=== PATIENT | male | born 1935 | race Caucasian/White ===

== ENCOUNTER 2018-05-15 08:36 | Day surgery (SDC) | payer OTHER ==
[2018-05-10 14:12] LABS: Urine Appearance CLEAR; Urine Bilirubin NEGATIVE (NEG); Urine Blood 3+ (NEG); Urine Color YELLOW; Urine Glucose NEGATIVE (NEG); Urine Protein NEGATIVE (NEG); Urine Specific Gravity 1.015 (1.005-1.030); Urine pH 5.5 (5.0-7.0)
--- NOTE | 2018-05-10 14:12 | RAD REPORT ---
EXAM DESCRIPTION: RAD - Chest Pa And Lat (2 Views) - 05/10/2018 2:05 pm CLINICAL HISTORY: preop Hypertension COMPARISON: Abdomen 1 View (KUB) dated 05/10/2018; Abdomen 1 View (KUB) dated 05/03/2018; Abdomen 1 Vie w (KUB) dated 08/31/2017; Abdomen 1 View (KUB) dated 08/29/2016; Thorax W/ Con dated 05/08/2018 FINDINGS: The lungs are mildly emphysematous but clear. The heart is mildly enlarged in size with ch anges of a prior sternotomy noted. No displaced fractures. IMPRESSION: Mild COPD.
[2018-05-10 14:23] LABS: Absolute Lymphocytes (CBC) 1.7 K/uL (0.7-4.9); Absolute Monocytes 0.4 K/uL (0.1-1.3); Basophils % 0.7 % (0-1.3); Eosinophils % 0.6 % (0-4.4); Hematocrit 39.2 % (39.6-49.0); Lymphocytes % 27.1 % (15.3-44.8); MCH 30.2 pg (27.0-35.0); Monocytes % 6.5 % (3.3-12.3); RBC Red Blood Cell Count 4.31 M/uL (4.33-5.43)
[2018-05-10 14:24] LABS: Potassium 4.4 mEq/L (3.6-5.0)
[2018-05-10 14:42] LABS: Protime INR 1.16
[2018-05-10 14:43] LABS: Urine Microscopic Reflex ORDER UMIC
[2018-05-10 14:44] LABS: Urine Bacteria <20 /HPF (NONE SEEN); Urine Culture Reflex Order NOT NEEDED; Urine Mucus 1+ /HPF (NONE SEEN); Urine RBC >50 /HPF (NONE SEEN)
--- NOTE | 2018-05-11 06:19 | EKG ---
Test Date: 2018-05-10 Test Time: 13:57:55 Insurance Account Specialist: MAUDE MEASUREMENT RESULTS: Intervals: Rate: 95 IN: 128 QRSD: 90 QT: 350 QTc: 464 [place]: P: IN: 128 QRS: 58 T: 217 INTERPRETIVE STATEMENTS: Atrial fibrillation with frequent premature ventricular or aberrantly conducted complexes Nonspecific T wave abnormality Abnormal ECG Compared to ECG 10/02/2015 09:53:50 Ventricular premature complex(es) now present T-wave abnormality now present Sinus bradycardia no longer present Electronically Signed On 05-11-18 06:18:50 CDT by Bo Rubin
--- OUTSIDE RECORDS SUMMARY | 2018-05-15 08:38 | XMS REPORT | Clinical Summary ---
:1935 Author Organization [facility] Address [address] [place] [address] Care Team Providers Name Role Phone Asked, No Pcp Primary Care Provider Unavailable Allergies Active Allergy Reactions Severity Noted Date Comments No Known Drug Allergies 09/19/2016 Current Medications Prescription Sig. Disp. Refills Start Date End Date Status aspirin 81 mg Chew 1 tablet Active chewable tablet every day by oral route. omeprazole omeprazole 40 mg Active (PriLOSEC) 40 MG capsule,delayed capsule release furosemide (LASIX) Take 1 tablet (20 30 tablet 04/17/2018 04/17/20 Active 20 mg mg total) by mouth 19 tabletIndications: daily. Coronary artery disease involving [place] coronary artery of [place] heart without angina pectoris, Systolic congestive heart failure, unspecified congestive heart failure chronicity metoprolol Take 1 tablet (50 30 tablet 04/17/2018 04/17/20 Active succinate XL mg total) by mouth 19 (TOPROL-XL) 50 mg daily. 24 hr tabletIndications: Coronary artery disease involving [place] coronary artery of [place] heart without angina pectoris, Systolic congestive heart failure, unspecified congestive heart failure chronicity clopidogrel Take 1 tablet (75 30 tablet 04/17/2018 04/17/20 Active (PLAVIX) 75 mg mg total) by mouth 19 tabletIndications: daily. Coronary artery disease involving [place] coronary artery of [place] heart without angina pectoris, Systolic congestive heart failure, unspecified congestive heart failure chronicity orphenadrine orphenadrine 11/15/20 Discontinued (NORFLEX) 100 mg citrate ER 100 mg 17 12 hr tablet tablet,extended release HYDROcodone-acetam hydrocodone 5 11/15/20 Discontinued inophen (NORCO) mg-acetaminophen 17 5-325 mg per 325 mg tablet tablet bacitracin bacitracin 500 11/15/20 Discontinued ophthalmic unit/gram eye 17 ointment ointment cephalexin cephalexin 500 mg 11/15/20 Discontinued (KEFLEX) 500 MG capsule 17 capsule ciprofloxacin ciprofloxacin 500 11/15/20 Discontinued (CIPRO) 500 MG mg tablet 17 tablet traMADol (ULTRAM) tramadol 50 mg 11/15/20 Discontinued 50 mg tablet tablet 17 FLUZONE HIGH-DOSE INJECT 1 DOSE INTO 0 08/02/2016 11/15/20 Discontinued 2015-, PF, THE MUSCLE 17 vaccine VIT Take by mouth. 11/15/20 Discontinued C/E/ZN/COPPR/LUTEI 17 N/ZEAXAN (PRESERVISION AREDS 2 ORAL) atorvastatin Take 1 tablet (40 90 tablet 3 11/16/2017 02/14/20 Discontinued (LIPITOR) 40 MG mg total) by mouth 18 tablet nightly for 30 days. clopidogrel Take 1 tablet (75 90 tablet 3 11/16/2017 02/14/20 Discontinued (PLAVIX) 75 mg mg total) by mouth 18 tablet daily. metoprolol Take 1 tablet (50 90 tablet 3 11/16/2017 02/14/20 Discontinued succinate XL mg total) by mouth 18 (TOPROL-XL) 50 mg daily. 24 hr tablet lisinopril Take 1 tablet (5 90 tablet 3 11/16/2017 02/14/20 Discontinued (PRINIVIL,ZESTRIL) mg total) by mouth 18 5 mg tablet daily. prednisoLONE 09/27/2017 02/14/20 Discontinued acetate (PRED 18 FORTE) 1 % ophthalmic suspension atorvastatin 04/04/2018 04/17/20 Discontinued (LIPITOR) 40 MG 18 tablet clopidogrel Take 75 mg by 3 03/25/2018 04/17/20 Discontinued (PLAVIX) 75 mg mouth daily. 18 tablet lisinopril 04/04/2018 04/17/20 Discontinued (PRINIVIL,ZESTRIL) 18 5 mg tablet metoprolol 04/04/2018 04/17/20 Discontinued succinate XL 18 (TOPROL-XL) 50 mg 24 hr tablet Active Problems Problem Noted Date Systolic congestive heart failure 04/17/2018 NSVT (nonsustained ventricular tachycardia) 12/05/2017 Atrial fibrillation 12/05/2017 Coronary artery disease involving [place] heart with angina pectoris 11/08/2017 Overview: Added automatically from request for surgery [id number] CAD in [place] artery 11/07/2017 Ischemic cardiomyopathy 11/07/2017 Dizziness 11/07/2017 History of coronary artery bypass graft 10/17/2017 Coronary artery disease involving [place] coronary artery of [place] heart 10/17 without angina pectoris Bilateral carotid artery disease 04/18/2017 Chronic atrial fibrillation 10/18/2016 Coronary arteriosclerosis 09/19/2016 Presence of stent in coronary artery 09/19/2016 Encounters Date Type Specialty Care Team Description 04/17/2018 Office Visit Cardiology Estella Kevin SOB (shortness of breath) ( Primary Dx); MD Henry Coronary artery disease involving [place] coronary artery of [place] heart without angina pectoris; Systolic congestive heart failure, unspecified congestive heart failure chronicity 02/13/2018 Office Visit Cardiology Souleymane Correa Ischemic cardiomyopathy ( Primary Dx); MD Stuart PhD Chronic atrial fibrillation; NSVT (nonsustained ventricular tachycardia); Presence of stent in coronary artery 01/30/2018 Office Visit Cardiology Souleymane Correa Ischemic cardiomyopathy ( Primary Dx); MD Stuart PhD NSVT (nonsustained ventricular tachycardia); CAD in [place] artery; Chronic atrial fibrillation 12/05/2017 Office Visit Cardiology Estella Kevin History of coronary artery bypass graft (Primary Dx); MD Henry Presence of stent in coronary artery; Ischemic cardiomyopathy; NSVT (nonsustained ventricular tachycardia); Atrial fibrillation, unspecified type 11/15/2017 - Hospital Encounter Cardiology Estella Kevin Coronary artery 11/16/2017 MD Henry disease involving [place] heart with angina pectoris, unspecified vessel or lesion type 11/15/2017 Procedure Pass Procedural Cardiology 11/15/2017 Surgery Procedural Estella Kevin Cv left heart cath Cardiology MD Henry [65022 (CPT)] 11/09/2017 Lab Lab Estella Kevin CAD in [place] artery MD Henry 11/08/2017 Orders Only Cardiology Ted Rm artery XIOMY Sylvester disease involving [place] heart with angina pectoris, unspecified vessel or lesion type (Primary Dx) 11/07/2017 Office Visit Cardiology Estella Kevin CAD in [place] artery ( Primary Dx); MD Henry History of coronary artery bypass graft; Presence of stent in coronary artery; Dizziness; Ischemic cardiomyopathy 11/02/2017 Orders Only Cardiology Rome Castro MA Coronary artery disease involving [place] coronary artery of [place] heart without angina pectoris ( Primary Dx); History of coronary artery bypass graft; Chronic atrial fibrillation; Presence of stent in coronary artery 10/31/2017 Orders Only Procedural Pricila Hand Dizziness Cardiology 10/17/2017 Office Visit Cardiology Estella Kevin Coronary artery disease involving [place] coronary artery of [place] heart without angina pectoris ( Primary Dx); MD Henry History of coronary artery bypass graft; Chronic atrial fibrillation; Presence of stent in coronary artery 10/17/2017 Orders Only Cardiology Estella Kevin CAD in [place] artery ( Primary Dx); MD Henry Dizziness after 05/14/2017 Family History Medical History Relation Name Comments Heart failure Mother Relation Name Status Comments Father Mother Social History Tobacco Use Types Packs/Day Years Used Date Never Smoker Smokeless Tobacco: Never Used Alcohol Use Drinks/Week oz/Week Comments No Sex Assigned at Date Recorded Not on file Last Filed Vital Signs Vital Sign Reading Time Taken Blood Pressure 140/74 04/17/2018 9:59 AM CDT Pulse 85 04/17/2018 9:59 AM CDT Temperature 36.4 C (97.6 F) 11/16/2017 7:53 AM [employer] Respiratory Rate 18 11/16/2017 7:53 AM [employer] Oxygen Saturation 100% 11/16/2017 2:40 PM [employer] Inhaled Oxygen Concentration - - Weight 86.2 kg (190 lb) 04/17/2018 9:59 AM CDT Height 177.8 cm (5' 10") 04/17/2018 9:59 AM CDT Body Mass Index 27.26 04/17/2018 9:59 AM CDT Plan of Treatment Date Type Specialty Care Team Description 04/16/2019 Office Visit Cardiology Estella Kevin MD [address] [address] Health Maintenance Due Date Last Done Comments SHINGRIX VACCINE (#1) 1983 ZOSTER VACCINE 1993 PNEUMOCOCCAL POLYSACCHARIDE VACCINE AGE 65 AND OVER 1998 PNEUMOCOCCAL-13 1998 INFLUENZA VACCINE 06/27/2018 Implants Implanted Type Area Charging Operator Device Expiration Model / Identifier Date Serial / Lot Stent System 5.0 X 26mm Resolute Jose Rx Coronary - [id number] Coronary N/A: N /A VHX [facility] - [id number] / Implanted: 11/15/2017 (Quantity not on file) Stents VASCULAR / Stent System 3.0 X 15mm Resolute Sims Rx Coronary - [id number] Coronary N/A: N /A [employer] [facility] - [id number] / Implanted: 11/15/2017 (Quantity not on file) Stents CARDIAC RYHTYM / MGMT Procedures Procedure Name Priority Date/Time Associated Diagnosis Comments ECG 12-LEAD Routine 02/13/2018 1:53 Chronic atrial Results for this PM CDT fibrillation procedure are in the results section. ECHOCARDIOGRAM 2D Routine 01/31/2018 10:44 Ischemic Results for this COMPLETE W MMODE AM [employer] cardiomyopathy procedure are in SPECTRAL COLOR DOPPLER the results (68388) section. ECG 12-LEAD Routine 01/30/2018 4:08 CAD in [place] artery Results for this PM [employer] procedure are in the results section. ECG 12-LEAD Routine 11/16/2017 5:03 Results for this AM [employer] procedure are in the results section. PHOSPHORUS LEVEL Routine 11/16/2017 5:00 Results for this AM [employer] procedure are in the results section. MAGNESIUM LEVEL Routine 11/16/2017 5:00 Results for this AM [employer] procedure are in the results section. ESTIMATED GFR Routine 11/16/2017 5:00 Results for this AM [employer] procedure are in the results section. LIPID PANEL Routine 11/16/2017 5:00 Results for this AM [employer] procedure are in the results section. HC COMPLETE BLD COUNT Routine 11/16/2017 5:00 Results for this W/AUTO DIFF AM [employer] procedure are in the results section. BASIC METABOLIC PANEL Routine 11/16/2017 5:00 Results for this AM [employer] procedure are in the results section. CONSULT CARDIAC REHAB Routine 11/15/2017 6:23 PHASE 1 PM [employer] ECG 12-LEAD Routine 11/15/2017 1:50 Results for this PM [employer] procedure are in the results section. CV PCI STENT Routine 11/15/2017 1:15 Coronary artery Results for this ADDITIONAL VESSELS PM [employer] disease involving procedure are in [place] heart with the results angina pectoris, section. unspecified vessel or lesion type CV INTRACORONARY STENT Routine 11/15/2017 1:15 Coronary artery Results for this PLACEMENT W PM [employer] disease involving procedure are in ANGIOPLASTY SINGLE [place] heart with the results MAJOR ARTERY OR BRANCH angina pectoris, section. unspecified vessel or lesion type CV LEFT HEART CATH Routine 11/15/2017 1:15 Coronary artery Results for this PM [employer] disease involving procedure are in [place] heart with the results angina pectoris, section. unspecified vessel or lesion type POC ACT Routine 11/15/2017 12:29 Results for this PM [employer] procedure are in the results section. ECG 12-LEAD STAT 11/15/2017 10:27 Results for this AM [employer] procedure are in the results section. COPY RECEIVED FROM: Routine 11/09/2017 10:57 Results for this AM [employer] procedure are in the results section. PROTHROMBIN TIME WITH Routine 11/09/2017 10:57 Results for this INR AM [employer] procedure are in the results section. PARTIAL THROMBOPLASTIN Routine 11/09/2017 10:57 Results for this TIME (PTT) AM [employer] procedure are in the results section. COPY(IES) SENT TO: Routine 11/09/2017 10:57 Results for this AM [employer] procedure are in the results section. PT AND PTT Routine 11/09/2017 10:57 CAD in [place] artery Results for this AM [employer] procedure are in the results section. BASIC METABOLIC PANEL Routine 11/09/2017 10:57 CAD in [place] artery Results for this AM [employer] procedure are in the results section. CBC WITH PLATELET AND Routine 11/09/2017 10:57 CAD in [place] artery Results for this DIFFERENTIAL AM [employer] procedure are in the results section. ECHOCARDIOGRAM 2D Routine 11/02/2017 12:50 Coronary artery Results for this COMPLETE W MMODE PM [employer] disease involving procedure are in SPECTRAL COLOR DOPPLER [place] coronary the results (45720) artery of [place] section. heart without angina pectoris History of coronary artery bypass graft Chronic atrial fibrillation Presence of stent in coronary artery CV HOLTER MONITOR 24 Routine 10/27/2017 10:29 Dizziness Results for this HOUR AM [employer] procedure are in the results section. after 05/14/2017 Results ECG 12 lead (02/13/2018 1:53 PM)Only the most recent of5 resultswithin the time period is included. Ventricular rate 94 [facility] Atrial rate 75 [facility] QRSD interval 90 [facility] QT interval 368 [facility] QTC interval 460 [facility] QRS axis 1 102 [facility] T wave axis -59 [facility] EKG impression Atrial fibrillation with premature ventricular or aberrantly conducted complexes-Rightward axis-T wave abnormality, consider inferior ischemia-Prolonged QT-Abnormal ECG-In automated comparison with ECG [facility] MUSE of 30-JAN-2018 16:08,-T wave inversion now evident in Inferior leads- Performing Organization Address City/State/Zipcode Phone Number [facility] MUSE [address] [place] [address] Echocardiogram complete w contrast and 3D if needed (01/31/2018 10:44 AM) Narrative Performed At [facility] Echocardiography Report Pat.Name:William HERRERA.ID:[id number] .Date: 01/31/2018Exam Time: 10:06:00 AM Study Type:Routine EchoHeight:70in Weight:190lb BSA: 2.04 m2 DOBAge:1935,82YSex: MALE BP:119/85HR: 81 bpm Sonogrphr: Keturah Anderson CS, RVTPat. Stat.:Outpatient Room:[facility] Status:Final Echo Event ID:[id number] Order ID:[id number] Reason for Study:Cardiomyopathy History / Clinical:Atrial Fibrillation, Coronary Artery Disease, CABG Procedures:2D Echo, Colorflow Doppler Race:C SUMMARY: LV EF is moderately depressed. Estimated EF is 35-39%. LV relaxation is impaired. LV filling pressure is elevated. Estimated PA systolic pressure is 40-45 mmHg, assuming a mean RAP of 5-10 mmHg. FINDINGS: LV: LV size is normal. LV EF is moderately depressed. Global hypokinesis.Estimated EF is 35-39%. RV: RV size is enlarged. RV systolic function is grossly normal. LA: LA volume is moderately enlarged. RA: RA volume is difficult to assess. AO: Aortic root diameter is normal in size. SOPHIE: There is an anterior space consistent with a prominent epicardialfat pad. AV: Focal calcification of AV leaflets. Mild aortic regurgitation. MV: Mild mitral annular calcification. Mild mitral regurgitation. PV: No structural PV abnormalities noted. Mild to moderate pulmonicregurgitation. TV: No structural TV abnormalities noted. Mild tricuspid regurgitation Mcmillan: LV relaxation is impaired. LV filling pressure is elevated. Other:Estimated PA systolic pressure is 40-45 mmHg, assuming a meanRAP of 5-10 mmHg. MEASUREMENTS: 2D Parasternal Long Fitzpatrick LVIDd5.5 cmIndex2.7 cm/m Ao Rtd 3.6 cm Index1.8 cm/m IVSd 1 cm LV Qrdq527.6 g(122-174) LVPWd0.8 cmLVM Index 88.5 g/m2 LA Ds5 cmRWT0.3 LA Sng Plane LA Area 23.5 cm2(8.8-23.4) LA Vol88.9 ml Index43.6 ml/m LA LngAx 5.2 cm Signed 02/01/2018 04:18 PM Chuck Coffman M.D. Procedure Note Interface, Radiology Results In - 02/01/2018 4:19 PM [employer] [facility] Echocardiography Report Pat.Name: LUTHER HERRERA Pat.ID: [id number] .Date: 01/31/2018 Exam Time: 10:06:00 AM Study Type:Routine Echo Height: 70in Weight: 190lb BSA: 2.04 m2 Age: 2 1935,82Y Sex: MALE BP: 119/85 HR: 81 bpm Sonogrphr: Keturah Anderson RDCS, RVT Pat. Stat.:Outpatient Room: [facility] Study Status:Final Echo Event ID:[id number] Order ID: [id number] Reason for Study:Cardiomyopathy History / Clinical:Atrial Fibrillation, Coronary Artery Disease, CABG Procedures:2D Echo, Colorflow Doppler Race: C SUMMARY: LV EF is moderately depressed. Estimated EF is 35-39%. LV relaxation is impaired. LV filling pressure is elevated. Estimated PA systolic pressure is 40-45 mmHg, assuming a mean RAP of 5-10 mmHg. FINDINGS: LV: LV size is normal. LV EF is moderately depressed. Global hypokinesis. Estimated EF is 35-39%. RV: RV size is enlarged. RV systolic function is grossly normal. LA: LA volume is moderately enlarged. RA: RA volume is difficult to assess. AO: Aortic root diameter is normal in size. SOPHIE: There is an anterior space consistent with a prominent epicardial fat pad. AV: Focal calcification of AV leaflets. Mild aortic regurgitation. MV: Mild mitral annular calcification. Mild mitral regurgitation. PV: No structural PV abnormalities noted. Mild to moderate pulmonic regurgitation. TV: No structural TV abnormalities noted. Mild tricuspid regurgitation Mcmillan: LV relaxation is impaired. LV filling pressure is elevated. Other: Estimated PA systolic pressure is 40-45 mmHg, assuming a mean RAP of 5-10 mmHg. MEASUREMENTS: 2D Parasternal Long Fitzpatrick LVIDd 5.5 cm Index 2.7 cm/m Ao Rtd 3.6 cm Index 1.8 cm/m IVSd 1 cm LV Mass 180.6 g (122-174) LVPWd 0.8 cm LVM Index 88.5 g/m2 LA Ds 5 cm RWT 0.3 LA Sng [address]ane LA Area 23.5 cm2 (8.8-23.4) LA Vol 88.9 ml Index 43.6 ml/m LA LngAx 5.2 cm Signed 02/01/2018 04:18 PM Chuck Coffman M.D. Performing Organization Address City/[facility]/Zipcode Phone Number [facility] [address] [place] [address] Estimated GFR (11/16/2017 5:00 AM) GFR Non Af Amer 71 mL/min/1.[address] [facility] DEPARTMENT OF PATHOLOGY AND GENOMIC MEDICINE GFR Af Amer 86 mL/min/1.[address] [facility] DEPARTMENT OF Comment: PATHOLOGY AND GENOMIC Chronic kidney disease: <60 mL/min/1.73m2 MEDICINE Kidney failure: <15 mL/min/1.73m2 The estimated GFR is calculated from the IDMS-traceable Modification of Diet in Renal Disease Equation. The accuracy of the calculation is poor when the creatinine is normal. Calculated values >90 mL/min/1.73m2 are not reported. This equation has not been validated in children (<18 years), women, the elderly (>70 years), or ethnic groups other than Caucasians and Americans. Specimen Plasma specimen Performing Organization Address City/[facility]/Zipcode Phone Number [facility] DEPARTMENT OF PATHOLOGY AND [address] [place] [address] [employer] [facility] CBC with platelet and differential (11/16/2017 5:00 AM)Only the most recent of2 resultswithin the time period is included. WBC 5.89 4.50 - 11.00 k/uL [facility] DEPARTMENT OF PATHOLOGY AND GENOMIC MEDICINE RBC 3.52 (L) 4.40 - 6.00 m/uL [facility] DEPARTMENT OF PATHOLOGY AND GENOMIC MEDICINE HGB 10.9 (L) 14.0 - 18.0 g/dL [facility] DEPARTMENT OF PATHOLOGY AND GENOMIC MEDICINE HCT 34.5 (L) 41.0 - 51.0 % [facility] DEPARTMENT OF PATHOLOGY AND GENOMIC MEDICINE MCV 98.0 82.0 - 100.[address] [facility] DEPARTMENT OF PATHOLOGY AND GENOMIC MEDICINE MCH 31.0 27.0 - 34.[address] [facility] DEPARTMENT OF PATHOLOGY AND GENOMIC MEDICINE MCHC 31.6 31.0 - 37.0 g/dL [facility] DEPARTMENT OF PATHOLOGY AND GENOMIC MEDICINE RDW - SD 49.8 37.0 - 55.[address] [facility] DEPARTMENT OF PATHOLOGY AND GENOMIC MEDICINE MPV 12.1 8.8 - 13.[address] [facility] DEPARTMENT OF PATHOLOGY AND GENOMIC MEDICINE Platelet count 104 (L) 150 - 400 k/uL [facility] DEPARTMENT OF PATHOLOGY AND GENOMIC MEDICINE Nucleated RBC 0.30 /[address] [facility] DEPARTMENT OF PATHOLOGY AND GENOMIC MEDICINE Neutrophils 59.9 39.0 - 69.0 % [facility] DEPARTMENT OF PATHOLOGY AND GENOMIC MEDICINE Lymphocytes 29.5 25.0 - 45.0 % [facility] DEPARTMENT OF PATHOLOGY AND GENOMIC MEDICINE Monocytes 8.3 0.0 - 10.0 % [facility] DEPARTMENT OF PATHOLOGY AND GENOMIC MEDICINE Eosinophils 1.5 0.0 - 5.0 % [facility] DEPARTMENT OF PATHOLOGY AND GENOMIC MEDICINE Basophils 0.5 0.0 - 1.0 % [facility] DEPARTMENT OF PATHOLOGY AND GENOMIC MEDICINE Immature granulocytes 0.3Comment: 0.0 - 1.0 % [facility] DEPARTMENT OF "Immature PATHOLOGY AND GENOMIC granulocytes" MEDICINE (promyelocytes, myelocytes, metamyelocytes) Specimen Blood Performing Organization Address City/[facility] Phone Number [facility] DEPARTMENT OF PATHOLOGY AND [address] [place] [address] GENOMIC MEDICINE Phosphorus level (11/16/2017 5:00 AM) Phosphorus 2.6 2.4 - 4.5 mg/dL [facility] DEPARTMENT OF PATHOLOGY AND GENOMIC MEDICINE Specimen Plasma specimen Performing Organization Address [facility] Phone Number [facility] DEPARTMENT OF PATHOLOGY AND [address] [place] [address] MEDICINE Magnesium level (11/16/2017 5:00 AM) Magnesium 2.0 1.6 - 2.4 mg/dL [facility] DEPARTMENT OF PATHOLOGY AND GENOMIC MEDICINE Specimen Plasma specimen Performing Organization Address [facility] Cent[facility]ode Phone Number [facility] DEPARTMENT OF PATHOLOGY AND [address] [place] [id number] GENOMIC MEDICINE Lipid panel (11/16/2017 5:00 AM) Cholesterol 146 <200 mg/dL [facility] DEPARTMENT OF PATHOLOGY AND GENOMIC MEDICINE Triglycerides 62 <150 mg/dL [facility] DEPARTMENT OF PATHOLOGY AND GENOMIC MEDICINE HDL cholesterol 38 (L) >40 mg/dL [facility] DEPARTMENT OF PATHOLOGY AND GENOMIC MEDICINE LDL cholesterol 97Comment: Result <100 mg/dL [facility] DEPARTMENT OF obtained by direct LDL PATHOLOGY AND GENOMIC measurement MEDICINE Lipid panel interpretation SeeBelow [facility] DEPARTMENT OF Comment: PATHOLOGY AND GENOMIC Total Cholesterol (mg/dL) MEDICINE <200 Desirable 251-317Hycgtxwikr-gjma >=240High Triglycerides (mg/dL) <150 Normal [id number]-[id number] 200-499High >=500Very high HDL Cholesterol (mg/dL) <40Low (male) <40Low (female) LDL Cholesterol (mg/dL) <100 Optimal 100-129Near or above optimal [phone]-[id number] 160-189High >=190Very high Risk Catergories that modify LDL goals. Risk CatergoriesLDL goal (mg/dL) CHD and CHD risk equivalent<100 (10-year risk >20%) Multiple (2+) risk factors <130 (10-year risk=<20%) 0-1 risk factors <160 (<10-year risk) Defining levels of lipids in metabolic syndrome Triglycerides>=150 mg/dL HDL Cholesterol Men<40 mg/dL Women<40 mg/dL Non-HDL cholesterol is a second target for therapy in persons with high triglycerides (>=200 mg/dL) Specimen Plasma specimen Performing Organization Address City/[facility] Phone Number [facility] DEPARTMENT OF PATHOLOGY AND [address] [place] [address] [facility] [employer] Basic metabolic panel (11/16/2017 5:00 AM)Only the most recent of2 resultswithin the time period is included. Sodium 139 135 - 148 mEq/L [facility] DEPARTMENT OF PATHOLOGY AND GENOMIC MEDICINE Potassium 4.2 3.5 - 5.0 mEq/L [facility] DEPARTMENT OF PATHOLOGY AND GENOMIC MEDICINE Chloride 103 98 - 112 mEq/L [facility] DEPARTMENT OF PATHOLOGY AND GENOMIC MEDICINE CO2 19 (L) 24 - 31 mEq/L [facility] [facility] DEPARTMENT OF PATHOLOGY AND GENOMIC MEDICINE Anion gap 17 (H) 7 - 15 mEq/L [facility] DEPARTMENT OF PATHOLOGY Comment: AND [facility] [facility] Starting from February , anion gap calculation no longer incorporates potassium. Please note the change. BUN 16 8 - 23 mg/dL [facility] DEPARTMENT OF PATHOLOGY AND GENOMIC MEDICINE Creatinine 1.0 0.7 - 1.2 mg/dL [facility] DEPARTMENT OF PATHOLOGY AND GENOMIC MEDICINE Glucose 72 65 - 99 mg/dL [facility] DEPARTMENT OF PATHOLOGY AND GENOMIC MEDICINE Calcium 8.3 (L) 8.8 - 10.2 mg/dL [facility] DEPARTMENT OF PATHOLOGY AND GENOMIC MEDICINE Specimen Plasma specimen Performing Organization Address [facility]/Zipcode Phone Number [facility] DEPARTMENT OF PATHOLOGY AND [address] [place] [address] [employer] [facility] Cv pharmacy laboratory technician procedure (11/15/2017 1:15 PM) Narrative Performed At PCI of SVG- Ramus with 5.0 x 26 mm Resolute Joes PIERO CUPID PCI of mid RCA with 3.0 x 15 mm Sims PIERO Performing Organization Address [facility] Cent[facility]ode Phone Number CUPID [address] [place] [address] POC ACT (11/15/2017 12:29 PM) Activated clotting time, POC 324 seconds Specimen Blood COPY RECEIVED FROM: (11/09/2017 10:57 AM) Copy received from: [facility] Comment: [address] [place] [address] Performing Organization Address [facility] Center[facility]il Phone Number [facility] COPY(IES) SENT TO: (11/09/2017 10:57 AM) Copies/mL [facility] Comment: [facility] [facility] [address] [place] [address] Performing Organization Address City/[facility] Phone Number [facility] PT and PTT (11/09/2017 10:57 AM) PTT 28 22 - 34 sec [facility] Comment: This test has not been validated for monitoring unfractionated heparin therapy. For testing that is validated for this type of therapy, please refer to the Heparin Anti-Xa assay (test code 49434). For additional information, please refer to http://education.[employer]/faq/XNY635 (This link is being provided for informational/educational purposes only.) INR 1.1 [facility] Comment: Reference Range 0.9-1.1 Moderate-intensity Warfarin Therapy 2.0-3.0 Higher-intensity Warfarin Therapy 3.0-4.0 Prothrombin time 12.0 (H) 9.0 - 11.5 sec [facility] Specimen Blood Resulting Agency Comment Performing Organization Information: Site ID: [id number] Name: [facility] Address: [address] [place] [phone] Director: Ximena Tracey MD Performing Organization Address [facility] [place] [address] Partial thromboplastin time, activated (11/09/2017 10:57 AM) PTT 28 22 - 34 sec [facility] Comment: This test has not been validated for monitoring unfractionated heparin therapy. For testing that is validated for this type of therapy, please refer to the Heparin Anti-Xa assay (test code 74242). For additional information, please refer to http://education.[employer]/faq/NIO213 (This link is being provided for informational/educational purposes only.) Resulting Agency Comment Performing Organization Information: Site ID: [id number] Name: [facility] Address: [address] [place] [phone] Director: Ximena Tracey MD Performing Organization Address [facility] Phone Number [facility] [place] [address] Prothrombin time with INR (11/09/2017 10:57 AM) INR 1.1 [facility] Comment: Reference Range 0.9-1.1 Moderate-intensity Warfarin Therapy 2.0-3.0 Higher-intensity Warfarin Therapy 3.0-4.0 Prothrombin time 12.0 (H) 9.0 - 11.5 sec [facility] Resulting Agency Comment Performing Organization Information: Site ID: [id number] Name: [facility] Address: [address] [place] [phone] Director: Ximena Tracey MD Performing Organization Address [facility] Phone Number [facility] [employer] [address] [address] Echocardiogram complete w contrast and 3D if needed (11/02/2017 12:50 PM) Narrative Performed At [facility] Echocardi[facility] Report Pat.Name:William HERRERA.ID:[id number] .Date: 11/02/2017 Refer.MD:ESTELLA KEVIN MD Exam Time: 2:20:00 PMStudy Type:Routine Echo Height:70inWeight: 193lb BSA: 2.06 m2 DOBAge:1935,81Y Sex: MALEBP:135/75 HR:92 bpmSonogrphr: Keturah Anderson RDCS, RVT Pat. Stat.:OutpatientRoom:[facility] Study Status:Final Echo Event ID:[id number] Order ID:[id number] Reason for Study:Atrial fibrillation History / Clinical:Atrial Fibrillation, Coronary Artery Disease, CABG Procedures:2D Echo, Colorflow Doppler Race:C SUMMARY: LV EF is mild to moderately depressed. RV systolic function is lower limits of normal. Mild pulmonary hypertension. FINDINGS: LV: LV size is normal. LV EF is moderately depressed. Estimated EFis 35-39%. RV: RV size is normal. RV systolic function is lower limits of normal. LA: LA volume is severely enlarged. RA: RA volume is enlarged. AO: Aortic root diameter is normal. OSPHIE: No pericardial effusion. AV: Mild calcification of AV leaflets. Mild aortic regurgitation. MV: Mild mitral annular calcification. Mild mitral regurgitation. PV: No structural PV abnormalities noted. Mild pulmonic regurgitation. TV: No structural TV abnormalities noted. Mild tricuspid regurgitation Mcmillan: LV relaxation is impaired. LV filling pressure is elevated. Other:Estimated PA systolic pressure is 36-41 mmHg, assuming a meanRAP of 5-10 mmHg. MEASUREMENTS: 2D Parasternal Long Fitzpatrick Ao An1.9 cmLVPWd0.5 cm LVOT 2.2 cmLA Ds5.3 cm LVIDd5 cmIndex2.4 cm/m Ao Rtd 3.6 cm Index1.7 cm/m LVIDs3.9 cm LV Fpnw192.3 g(122-174) LV%fs 22.6 % LVM Index 61.3 g/m2 IVSd 1 cmRWT0.2 LV EF Biplane SHEGE546.8 ml (65-193) Index58.2 ml/m LV SV 52.8 ml LVESV 67 krRqudn05.5 ml/m LV EF 44.1 %(63-77) LA Sng Plane LA Area 29.3 cm2(8.8-23.4) LA Vol 109 ml Index52.9 ml/m LA LngAx 6.5 cm RA Sng Plane RA Area 25.1 cm2(8.3-19.5) RA Vol86.9 ml Index42.2 ml/m RA LngAx 6.3 cm DOPPLER LVOT For Flow LVOT Area3.8 cm2 LVOT SV 52 ml LVOTpkVel 80.1 cm/sHR97.7 bpm LVOTpkPG 2.6 mmHgLVOT CO5.1 l/min LVOTmnPG 1.3 mmHgLVOT CI2.5 l/m/m2 LVOT TVI13.7 cm WALL MOTION: RESTING WALL MOTION: Basal Inferolateral wall is dyskinetic.Basal Inferoseptal, Basal Inferior, Mid Inferoseptal rubio are akinetic.Mid Inferior, Mid Inferolateral, Apical Septal, Apical Inferior, Apical rubio are hypokinetic.Mid Anterolateral, Apical Lateral rubio are mildly hypokinetic. Normal in all other rubio. Wall Index=1.9 Signed 11/03/2017 09:34 AM Iggy Grey M.D. Procedure Note Interface, Radiology Results In - 11/03/2017 9:34 AM [employer] [facility] Echocardiography Report Pat.Name: SHARONLUTHER TINOCO.ID: [id number] .Date: 11/02/2017 Refer.MD: ESTELLA KEVIN MD Exam Time: 2:20:00 PM Study Type:Routine Echo Height: 70in Weight: 193lb BSA: 2.06 m2 Age: 2 1935,81Y Sex: MALE BP: 135/75 HR: 92 bpm Sonogrphr: Keturah Anderson RDCS, RVT Pat. Stat.:Outpatient Room: [facility] Study Status:Final Echo Event ID:[id number] Order ID: [id number] Reason for Study:Atrial fibrillation History / Clinical:Atrial Fibrillation, Coronary Artery Disease, CABG Procedures:2D Echo, Colorflow Doppler Race: C SUMMARY: LV EF is mild to moderately depressed. RV systolic function is lower limits of normal. Mild pulmonary hypertension. FINDINGS: LV: LV size is normal. LV EF is moderately depressed. Estimated EF is 35-39%. RV: RV size is normal. RV systolic function is lower limits of normal. LA: LA volume is severely enlarged. RA: RA volume is enlarged. AO: Aortic root diameter is normal. SOPHIE: No pericardial effusion. AV: Mild calcification of AV leaflets. Mild aortic regurgitation. MV: Mild mitral annular calcification. Mild mitral regurgitation. PV: No structural PV abnormalities noted. Mild pulmonic regurgitation. TV: No structural TV abnormalities noted. Mild tricuspid regurgitation Mcmillan: LV relaxation is impaired. LV filling pressure is elevated. Other: Estimated PA systolic pressure is 36-41 mmHg, assuming a mean RAP of 5-10 mmHg. MEASUREMENTS: 2D Parasternal Long Fitzpatrick Ao An 1.9 cm LVPWd 0.5 cm LVOT 2.2 cm LA Ds 5.3 cm LVIDd 5 cm Index 2.4 cm/m Ao Rtd 3.6 cm Index 1.7 cm/m LVIDs 3.9 cm LV Mass 126.3 g (122-174) LV%fs 22.6 % LVM Index 61.3 g/m2 IVSd 1 cm RWT 0.2 LV EF Biplane LVEDV 119.8 ml (65-193) Index 58.2 ml/m LV SV 52.8 ml LVESV 67 ml Index 32.5 ml/m LV EF 44.1 % (63-77) LA Sng Plane LA Area 29.3 cm2 (8.8-23.4) LA Vol 109 ml Index 52.9 ml/m LA LngAx 6.5 cm RA Sng Plane RA Area 25.1 cm2 (8.3-19.5) RA Vol 86.9 ml Index 42.2 ml/m RA LngAx 6.3 cm DOPPLER LVOT For Flow LVOT Area 3.8 cm2 LVOT SV 52 ml LVOTpkVel 80.1 cm/s HR 97.7 bpm LVOTpkPG 2.6 mmHg LVOT CO 5.1 l/min LVOTmnPG 1.3 mmHg LVOT CI 2.5 l/m/m2 LVOT TVI 13.7 cm WALL MOTION: RESTING WALL MOTION: Basal Inferolateral wall is dyskinetic. Basal Inferoseptal, Basal Inferior, Mid Inferoseptal rubio are akinetic. Mid Inferior, Mid Inferolateral, Apical Septal, Apical Inferior, Apical rubio are hypokinetic. Mid Anterolateral, Apical Lateral rubio are mildly hypokinetic. Normal in all other rubio. Wall Index=1.9 Signed 11/03/2017 09:34 AM Iggy Grey M.D. Performing Organization Address [facility] Phone Number [facility] [address] [place] [address] Cv holter monitor 24 hour (10/27/2017 10:29 AM) Hookup Date [id number] [facility] MUSE Hookup Time [facility] MUSE Acquisition Duration [id number] [facility] MUSE # of Ventricular Beats in Runs 2888 [facility] MUSE # OF LONGEST VENTRICULAR BEATS 10 [facility] MUSE # of Supraventricular Beats in 0 [facility] MUSE Runs # of Longest Supraventricular [facility] MUSE Beats Max Heart Rate 159 [facility] MUSE Min Heart Rate 46 [facility] MUSE Longest RR 1.843 [facility] MUSE Diagnosis Atrial fibrillation-Frequent [facility] MUSE Premature ventricular complexes and Couplets-Multiple runs of nonsustained VT (longest 10 beats)-Occasional Premature supraventricular complexes- Performing Organization Address [facility] Phone Number [facility] MUSE [address] [place] [address] after 05/14/2017 Insurance Payer Benefit Plan / Group Subscriber ID Type Phone Address MEDICARE MEDICARE PART A AND B xxxxxxxxxx Medicare [place], [place] COMMERCIAL MISC MISC COMMERCIAL xxxxxxxxx Commercial Home: [address] [phone] [place] [phone]
[2018-05-15] MEDS ORDERED: GENTAMICIN 100 MG/100 ML BAG 100 MG/100 ML BAG IV ONE (08:45)
[2018-05-15] MEDS ORDERED: Ringers Lactate 1,000 ML IV ONE (08:45)
[2018-05-15] MEDS ORDERED: PROPOFOL 200 MG/20 ML VIAL IV ONE (09:05)
[2018-05-15] MEDS ORDERED: FENTANYL CITR 100 MCG/2 ML ONE (09:07)
[2018-05-15] MEDS ORDERED: MIDAZOLAM HCL 2 MG/2 ML INJ ONE (09:07)
[2018-05-15] MEDS ORDERED: LIDOCAINE 2% MPF 5 ML VIAL ONE (09:07)
[2018-05-15] MEDS ORDERED: ONDANSETRON HCL 40 MG/20 ML VIAL ONE (09:07)
--- NOTE | 2018-05-15 10:48 | RAD REPORT ---
EXAM DESCRIPTION: RAD - Urethrocystogrphy Retrograde - 05/15/2018 10:12 am CLINICAL HISTORY: Renal calculus/abdominal pain. COMPARISON: None. FINDINGS: A ureteroscopy examination was performed. Dr. Lewis was the performing physician. One fluoroscopic spot image is submitted. Please refer to Dr. Lewis's report for finding.
== END 2018-05-15 11:40 | disposition home or self-care (01) ==
LOC: OR 08:36
PROVIDERS: ATTEND Urology
PROC: BT1FYZZ Fluoroscopy of Left Kidney, Ureter and Bladder using Other Contrast (ICD-10-PCS; principal; 2018-05-15 10:00)
DX: N20.1 Calculus of ureter (principal); R30.0 Dysuria; I10 Essential (primary) hypertension; K59.00 Constipation, unspecified; M54.15 Radiculopathy, thoracolumbar region; N20.0 Calculus of kidney; N40.1 Benign prostatic hyperplasia with lower urinary tract symptoms; N13.8 Other obstructive and reflux uropathy
CPT/HCPCS: 36415; 51610; 52005; 71046; 74018; 74450; 80048; 85025; 85610; 85730; 87077; 87086; 87088; 87186; 93005; J1580; J2405; J3010; Q9967; 81003; 81015; J2250